=== PATIENT | male | born 1940 | race Caucasian/White ===

== ENCOUNTER → 2016-06-16 | Outpatient (CLI) | payer MEDICARE, BC ==
[~2016-06-16] MED LIST: ABILIFY 10MG TA10 MG PO; ABILIFY2 MG PO; ABILIFY5 MG PO; ALLEGRA 180MG180 MG PO; ALLEGRA ODT30 MG PO; ALLOPURINOL300 MG PO; AMBIEN 10MG10 MG PO; ANDROGEL1% TP; AZILECT1 M1 PO; BUSPAR DIVIDOSE15 MG PO; BUSPAR10 MG PO; BUSPAR5 MG PO; CENTRUM SILVER1 CTB PO; COLACE 100100 MG/CAP PO; COUMADIN 5MG5 MG/TAB PO; FERROUS SU325 MG/TAB PO; FERROUS SULFATE65 MG PO; FIBER TABLETS1 TAB PO; FLECAINIDE PO; FLOMAX 0.40.4 MG/CAP PO; HCTZ 25MG TAB25 MG PO; LEVAQUIN 750MG750 M1 PO; LUNESTA1 MG PO; MELATONIN5 M1 PO; MELATONIN5 M1 SL; METAMUCIL3.4 GM/DOS PO; MIRAPEX 0.0.125 MG/T PO; MIRAPEX ER3 MG PO; MIRAPEX ER4.5 MG PO; MULTI VITAMINS1 TAB PO; MULTIPLE VITAMI1 CAP PO; MULTIPLE VITAMI1 TAB PO; MVI; NEURONTIN100 MG/CAP PO; NIACIN PO; NORCO 325 MG-51 TAB PO; PERCOCET 325 MG1 TA2 PO; PROSCAR 5MG5 MG PO; PROSCAR PO; PROZAC 20MG20 MG PO; PYRIDIUM 100MG100 MG PO; STOOL SOFTENER100 M2 PO; TOPROL; TOPROL XL 25MG25 MG PO; UROCIT-K 5540 MG/TAB PO; VIAGRA; VIAGRA100 M1 PO; VITAMIN FLUSH-F1 CAP PO; ZITHROMAX 250M250 MG PO; ZOLOFT 100MG100 MG PO; ZOLOFT 50MG50 MG PO; ZYLOPRIM 300MG300 MG PO; [UNRECOGNIZED DRUG - OTHER]
== END ==
LOC: MHCPAIN 10:03
DX: G89.29 Other chronic pain (principal); M50.90 Cervical disc disorder, unspecified, unspecified cervical region; M54.12 Radiculopathy, cervical region
CPT/HCPCS: G0463

== ENCOUNTER → 2016-06-26 | Outpatient (CLI) | payer MEDICARE, BC | LOC: MHCPAIN 09:45 | DX: M47.812 Spondylosis without myelopathy or radiculopathy, cervical region (principal) ==

== ENCOUNTER → 2016-07-04 | Outpatient (CLI) | payer MEDICARE, BC | LOC: MHCPAIN 09:03 | DX: G89.29 Other chronic pain (principal); M50.90 Cervical disc disorder, unspecified, unspecified cervical region; M54.12 Radiculopathy, cervical region | CPT/HCPCS: G0463 ==

== ENCOUNTER 2016-08-06 09:00 | Outpatient (RCR) | payer MEDICARE, BC ==
[~2016-08-06 09:00] MED LIST changes: -METAMUCIL3.4 GM/DOS PO; -PERCOCET 325 MG1 TA2 PO; -PROSCAR 5MG5 MG PO; -UROCIT-K 5540 MG/TAB PO; -VITAMIN FLUSH-F1 CAP PO
[2016-11-17] MEDS ORDERED: FLOMAX 0.40.4 MG/CAP PO (17:00)
[2016-11-17] MEDS ORDERED: PROSCAR 5MG5 MG PO (17:00)
[2016-11-17] MEDS ORDERED: VITAMIN FLUSH-F1 CAP PO (17:05)
[2016-11-19] MEDS ORDERED: PERCOCET 325 MG1 TA2 PO (16:50)
== END 2016-08-12 14:13 | disposition still patient (30) ==
LOC: MKS.ESL.PT 09:00
DX: M47.892 Other spondylosis, cervical region (principal)
CPT/HCPCS: G8978-GP; G8979-GP; G8980-GP

== ENCOUNTER → 2016-10-10 | Outpatient (CLI) | payer MEDICARE, BC ==
[~2016-10-10] MED LIST changes: +METAMUCIL3.4 GM/DOS PO; +PERCOCET 325 MG1 TA2 PO; +PROSCAR 5MG5 MG PO; +UROCIT-K 5540 MG/TAB PO; +VITAMIN FLUSH-F1 CAP PO
== END ==
LOC: MHCPAIN 10:04
DX: G89.29 Other chronic pain (principal); M50.90 Cervical disc disorder, unspecified, unspecified cervical region
CPT/HCPCS: G0463

== ENCOUNTER → 2016-10-15 | Outpatient (CLI) | payer MEDICARE, BC | LOC: COL.RAD 06:59 | DX: Z01.812 Encounter for preprocedural laboratory examination (principal); I67.82 Cerebral ischemia; G31.9 Degenerative disease of nervous system, unspecified; K14.8 Other diseases of tongue; R13.10 Dysphagia, unspecified; Z86.73 Personal history of transient ischemic attack (TIA), and cerebral infarction without residual deficits | CPT/HCPCS: A9585 ==

== ENCOUNTER 2016-10-16 06:47 | Observation (INO) | payer MEDICARE, BC ==
[2016-10-16] VITALS (12 sets, daily range): BP systolic 107–154; BP diastolic 53–92; PULSE 59–76; TEMP 98.1–99
[~2016-10-16] VITALS: Ht 193 cm; Wt 115.9 kg
[~2016-10-16 06:47] MED LIST changes: -METAMUCIL3.4 GM/DOS PO; -PERCOCET 325 MG1 TA2 PO; -PROSCAR 5MG5 MG PO; -UROCIT-K 5540 MG/TAB PO; -VITAMIN FLUSH-F1 CAP PO
[2016-10-16 08:07] LABS: MEAN CELL VOLUME 93 fl (80.0-100.0); MEAN CORPUSCULAR HGB CONC 33 g/dl (33.0-37.0); MEAN PLATELET VOLUME 11.5 fl (7.4-10.4); PLATELET COUNT 54 K/mm3 (130-400); RED BLOOD COUNT 3.75 M/mm3 (4.20-5.60); REDCELL DISTRIBUTION WIDTH-CV 16.6 % (11.5-14.5); WHITE BLOOD COUNT 4.8 K/mm3 (4.8-10.8)
[2016-10-16 08:09] LABS: HEMOGLOBIN 11.6 g/dl (13.5-18.0); MEAN CORPUSCULAR HEMOGLOBIN 31 pg (27.0-31.0)
[2016-10-16 08:24] LABS: CALCIUM 9.5 mg/dL (8.4-10.2); CREATININE, serum 0.76 mg/dL (0.66-1.25)
[2016-10-16] MEDS ORDERED: UROCIT-K 5540 MG/TAB PO (09:26)
[2016-10-16] MEDS ORDERED: METAMUCIL3.4 GM/DOS PO (09:27)
[2016-10-17 01:02] VITALS: BP 114/40; PULSE 61; TEMP 98.3
[2016-10-17 05:28] VITALS: BP 118/54; PULSE 63; TEMP 97.5
[2016-10-17 09:15] VITALS: BP 130/60; PULSE 66; TEMP 97.8
[2016-10-17 13:46] VITALS: BP 132/60; PULSE 69; TEMP 98.6
[2016-11-17] MEDS ORDERED: FLOMAX 0.40.4 MG/CAP PO (17:00)
[2016-11-17] MEDS ORDERED: PROSCAR 5MG5 MG PO (17:00)
[2016-11-17] MEDS ORDERED: VITAMIN FLUSH-F1 CAP PO (17:05)
[2016-11-19] MEDS ORDERED: PERCOCET 325 MG1 TA2 PO (16:50)
== END 2016-10-17 14:20 | disposition home or self-care (01) ==
LOC: SURG 06:47
PROVIDERS: Urology
DX: N32.89 Other specified disorders of bladder (principal); R31.0 Gross hematuria; I48.91 Unspecified atrial fibrillation; I10 Essential (primary) hypertension; E29.1 Testicular hypofunction; D69.6 Thrombocytopenia, unspecified; D46.9 Myelodysplastic syndrome, unspecified; F84.5 Asperger's syndrome; G47.33 Obstructive sleep apnea (adult) (pediatric); M19.90 Unspecified osteoarthritis, unspecified site; J18.9 Pneumonia, unspecified organism; D64.9 Anemia, unspecified; G20 Parkinson's disease; Z90.79 Acquired absence of other genital organ(s); Z90.49 Acquired absence of other specified parts of digestive tract; Z85.72 Personal history of non-Hodgkin lymphomas; Z85.038 Personal history of other malignant neoplasm of large intestine; Z80.1 Family history of malignant neoplasm of trachea, bronchus and lung
CPT/HCPCS: G0378; J0690; J1100; J1885; J2405; J2704; J3010; J7030; J7120

== ENCOUNTER 2017-02-23 10:00 | Outpatient (RCR) | payer MEDICARE, BC ==
[~2017-02-23 10:00] MED LIST changes: +METAMUCIL3.4 GM/DOS PO; +PERCOCET 325 MG1 TA2 PO; +PROSCAR 5MG5 MG PO; +UROCIT-K 5540 MG/TAB PO; +VITAMIN FLUSH-F1 CAP PO
== END 2017-03-26 ==
LOC: MKS.ESL.PT
DX: M25.511 Pain in right shoulder (principal)
CPT/HCPCS: G8990-GP; G8991-GP

== ENCOUNTER → 2017-09-10 | Outpatient (CLI) | payer MEDICARE, BC | LOC: COL.RAD 13:15 | DX: R59.0 Localized enlarged lymph nodes (principal); J98.4 Other disorders of lung; Z85.79 Personal history of other malignant neoplasms of lymphoid, hematopoietic and related tissues; Z87.311 Personal history of (healed) other pathological fracture | CPT/HCPCS: Q9967 ==

== ENCOUNTER 2017-09-23 22:39 | Emergency (ER) | payer MEDICARE, BC ==
[2017-09-23 22:49] VITALS: BP 141/78
[2017-09-23] MEDS ORDERED: AMOXICILLIN 50500 MG PO (23:14)
[2017-09-23] MEDS ORDERED: TYLENOL W/COD1 UDTAB PO (23:14)
[2017-09-23 23:17] VITALS: TEMP 98.7
[2017-09-24 00:20] VITALS: PULSE 98
== END 2017-09-24 00:20 | disposition home or self-care (01) ==
LOC: COL.ER 22:39
DX: K02.9 Dental caries, unspecified (principal); G20 Parkinson's disease; Z79.891 Long term (current) use of opiate analgesic

== ENCOUNTER 2018-02-24 10:15 | Outpatient (RCR) | payer MEDICARE, BC ==
[~2018-02-24 10:15] MED LIST changes: +AMOXICILLIN 50500 MG PO; +TYLENOL W/COD1 UDTAB PO
[2018-02-28] MEDS ORDERED: SINEMET 25/101 UDTAB PO ×2 (01:00→01:04)
[2018-02-28] MEDS ORDERED: RITALIN 5MG5 MG/TAB PO (01:05)
== END 2018-03-09 | disposition home or self-care (01) ==
LOC: MKS.ESL.PT
DX: G20 Parkinson's disease (principal); Z79.899 Other long term (current) drug therapy
CPT/HCPCS: G8978-GP; G8979-GP

== ENCOUNTER 2018-02-27 21:41 | Inpatient (IN) | payer MEDICARE, BC ==
[~2018-02-27] VITALS: Ht 193 cm; Wt 115.0 kg
[2018-02-27 22:12] LABS: MEAN CELL VOLUME 87 fl (80.0-100.0); MEAN CORPUSCULAR HEMOGLOBIN 28 pg (27.0-31.0); MEAN CORPUSCULAR HGB CONC 31 g/dl (33.0-37.0); RED BLOOD COUNT 3.64 M/mm3 (4.20-5.60); REDCELL DISTRIBUTION WIDTH-CV 22.5 % (11.5-14.5)
[2018-02-27 22:13] LABS: HEMATOCRIT 31.8 % (42.0-52.0)
[2018-02-27 22:14] LABS: PLATELET COUNT 34 K/mm3 (130-400)
[2018-02-27 22:23] LABS: ALBUMIN 4.2 gm/dL (3.5-5.0); C-REACTIVE PROTEIN 5.2 mg/dL (0.0-0.9); CALCIUM 9.7 mg/dL (8.4-10.2); CREATININE, serum 1.01 mg/dL (0.66-1.25); POTASSIUM 4.1 mmol/L (3.4-5.0); TOTAL PROTEIN 7.8 gm/dL (6.4-8.2)
[2018-02-27 22:27] LABS: BAND 15 % (0-10); NEUTROPHILS 58 % (42.0-75.2); PLATELET ESTIMATE DECREASED (NORMAL)
[2018-02-27 22:28] LABS: ANISOCYTOSIS 2+; OVALOCYTES 1+; POIKILOCYTOSIS 1+
[2018-02-27 22:29] LABS: LYMPHOCYTE 11 % (20.0-51.0)
[2018-02-27 22:32] LABS: TROPONIN-I 0.023 ng/mL (0.000-0.034)
[2018-02-28] VITALS (8 sets, daily range): BP systolic 103–153; BP diastolic 49–54; PULSE 71–101; TEMP 97.6–101.5
[2018-02-28] MEDS ORDERED: SINEMET 25/101 UDTAB PO ×2 (01:00→01:04)
[2018-02-28] MEDS ORDERED: RITALIN 5MG5 MG/TAB PO (01:05)
--- NOTE | 2018-02-28 07:05 | NUR ---
Pt resting. States he feels better this morning. Report given to Angie SMALL.
[2018-02-28 08:15] LABS: MEAN CELL VOLUME 88 fl (80.0-100.0); MEAN CORPUSCULAR HGB CONC 31 g/dl (33.0-37.0); RED BLOOD COUNT 3.09 M/mm3 (4.20-5.60); REDCELL DISTRIBUTION WIDTH-CV 22.6 % (11.5-14.5)
[2018-02-28 08:16] LABS: HEMATOCRIT 27.2 % (42.0-52.0); HEMOGLOBIN 8.5 g/dl (13.5-18.0); MEAN CORPUSCULAR HEMOGLOBIN 28 pg (27.0-31.0)
[2018-02-28 08:17] LABS: PLATELET COUNT 30 K/mm3 (130-400)
[2018-02-28 08:18] LABS: CALCIUM 8.9 mg/dL (8.4-10.2); CREATININE, serum 0.91 mg/dL (0.66-1.25); MAGNESIUM 1.7 mg/dL (1.6-2.3); POTASSIUM 3.9 mmol/L (3.4-5.0)
--- NOTE | 2018-02-28 09:24 | NUR ---
Pt assessment complete. Pt is sleeping in bed upon entry, he arouses to voice. Pt denies any pain. Breathing is wheezy on 2L O2 via NC, occasional wet cough present. SCD's on to bilateral legs. Pt denies needs, assisted with ordering breakfast. Call light within reach. Will continue to monitor.
[2018-02-28 11:05] LABS: BAND 15 % (0-10); LYMPHOCYTE 21 % (20.0-51.0); NEUTROPHILS 50 % (42.0-75.2); PLATELET ESTIMATE DECREASED (NORMAL)
[2018-02-28 11:06] LABS: ANISOCYTOSIS 1+; HYPOCHROMIA 1+; OVALOCYTES 1+
--- NOTE | 2018-02-28 11:28 | NUR ---
Patient lives at home with his in [place], [place] and plans to return home upon discharge. Patient is mostly independent with daily living activities although he does have Parkinson's Disease and uses a cane for mobility as needed along with a CPAP machine at night. Patient's primary care physician is Dr. René Abebe and his oncologist is Dr. Serna as he is currently undergoing chemotherapy. Patient's pharmacy is [facility] and he does have advanced directives completed. Patient's and family as very supportive and patient is waiting for doctor's recommendation on discharge timeline. No further needs at this time.
[2018-02-28 16:39] LABS: COLLECTION METHOD CATHETER
[2018-02-28 16:50] LABS: MUCOUS Present /lpf; PH 5 (5-8); SQUAMOUS EPITHELIAL 0-2 /hpf; URINE APPEARANCE Clear; URINE BACTERIA None Seen /hpf; URINE BILIRUBIN Negative (NEGATIVE); URINE BLOOD 1+ (NEGATIVE); URINE COLOR Amber; URINE GLUCOSE Negative (NEGATIVE); URINE KETONE Negative (NEGATIVE); URINE LEUKOCYTE ESTERASE Negative (NEGATIVE); URINE NITRATE Negative (NEGATIVE); URINE PROTEIN(semi-quant) Negative (NEGATIVE); URINE RBC 0-2 /hpf; URINE UROBILINOGEN Negative (NEGATIVE)
--- NOTE | 2018-02-28 19:28 | NUR ---
Pt had uneventful afternoon. Resting in bed with call light within reach, at bedside. Denies further needs at this time. Report given to STACI Disla.
[2018-03-01] VITALS (8 sets, daily range): BP systolic 125–157; BP diastolic 55–75; PULSE 86–128; TEMP 98.1–101
--- NOTE | 2018-03-01 06:23 | NUR ---
Pt slept some during the night, no C/O pain, VS have been stable.
--- NOTE | 2018-03-01 07:19 | NUR ---
awake resting in bed, bedside shift report received from STACI Disla
--- NOTE | 2018-03-01 08:00 | NUR ---
awake resting in bed, full assessment completed, see interventions for further info, has audible wheezing with resp, lung sounds are coarse throughout lung mathews, denies needs
--- NOTE | 2018-03-01 09:20 | NUR ---
resting in bed, at bedside now, denies needs
[2018-03-01 09:23] LABS: MEAN CELL VOLUME 88 fl (80.0-100.0); MEAN CORPUSCULAR HGB CONC 31 g/dl (33.0-37.0); RED BLOOD COUNT 2.92 M/mm3 (4.20-5.60); REDCELL DISTRIBUTION WIDTH-CV 22.5 % (11.5-14.5)
[2018-03-01 09:37] LABS: CALCIUM 8.8 mg/dL (8.4-10.2); CREATININE, serum 0.63 mg/dL (0.66-1.25); POTASSIUM 3.9 mmol/L (3.4-5.0)
[2018-03-01 09:39] LABS: HEMATOCRIT 25.7 % (42.0-52.0); MEAN CORPUSCULAR HEMOGLOBIN 27 pg (27.0-31.0)
[2018-03-01 09:41] LABS: PLATELET COUNT 21 K/mm3 (130-400)
--- NOTE | 2018-03-01 09:45 | NUR ---
asking if he had a breathing treatment this am, informed dimitris he had, she is concerned he is not as "perky" this am as he had been yesterday afternoon, asking if he should be on a mask instead of a nasal cannula, O2 sat check and O2 is 96% on 3L/NC, informed would be around and will talk with her
--- NOTE | 2018-03-01 10:23 | NUR ---
Called and left message with Dr Trivedi for infectious disease consult
--- NOTE | 2018-03-01 10:43 | NUR ---
resting in bed, gave him his applesauce and chocolate chip cookie as he requested
[2018-03-01 11:11] LABS: BAND 8 % (0-10); LYMPHOCYTE 11 % (20.0-51.0); METAMYELOCYTE 1 % (0-0); NEUTROPHILS 66 % (42.0-75.2); PLATELET ESTIMATE DECREASED (NORMAL)
[2018-03-01 11:12] LABS: ANISOCYTOSIS 3+; MICROCYTOSIS 2+
[2018-03-01 11:13] LABS: STOMATOCYTE 1+
[2018-03-01 11:14] LABS: OVALOCYTES 1+
--- NOTE | 2018-03-01 11:55 | NUR ---
to radiology per WC for CT scan
--- NOTE | 2018-03-01 12:22 | NUR ---
returned to room per WC from CT scan, sitting up in bed to have some pudding and ensure, remains at bedside
--- NOTE | 2018-03-01 13:01 | NUR ---
appears to be sleeping, in bed with eyes closed, at bedside
--- NOTE | 2018-03-01 14:36 | NUR ---
resting in bed, MRSA screen collected and infomred patietn of need for urine specimen, verbalizes understanding
--- NOTE | 2018-03-01 16:30 | NUR ---
resting in bed, denies needs
--- NOTE | 2018-03-01 18:00 | NUR ---
up in recliner visiting with
--- NOTE | 2018-03-01 18:55 | NUR ---
bedside shift report given to STACI Mckeon
--- NOTE | 2018-03-01 21:15 | NUR ---
PT IS VERY SOB, CALLED RT AND RT ADVISED ALREADY HAD BREATHING TX. INCREASED O2 TO 4L/NC AND O2 SATS AT 95%, RAISED THE HOB TO 90 DEGREE ANGLE. PT ADVISED THAT HE FEELS BETTER AND HE DOES NOT HAVE THE PANICY FEELING. PT ALSO HAS A TEMP OF 101.0, GAVE TYLENOL FOR TEMP. ALSO CALLED NIKA TANNER AND ADVISED OF PT'S CONDITION. NIKA TANNER ADVISED SHE WILL BE IN TO SEE HIM. CALL LIGHT WITHIN REACH. ADVISED THAT PT GOT UP TO USE THE RESTROOM AND THAT IS WHEN HE BECAME SOB FROM THE ACTIVITY. CALL LIGHT WITHIN REACH.
[2018-03-02] VITALS (363 sets, daily range): BP systolic 138–154; BP diastolic 60–82; PULSE 89–136; TEMP 97.5–99.1; O2SAT 91–100
--- NOTE | 2018-03-02 05:09 | NUR ---
PT HAD CPAP PUT ON AND WAS SLEEPING FOR A FEW HOURS. PT HAD KLENEX WITH BLOOD ON THEM. PT HAS BEEN BLOWING HIS NOSE TOO HARD. WITNESSED PT BLOWING NOSE AND SUGGESTED TO NOT BLOW SO HARD AND TO HOLD ONE NOSTRIL AND BLOW ONE AT A TIME, BUT PT DID NOT DO IT INSTRUCTED AND WHEN HE BLEW HIS NOSE HAD BLOOD ON THE KLENEX. PT'S NOSE STOPPED UP AND COULD NOT BREATH WITH CPAP. CALLED RT TO SEE ABOUT A BIPAP, BUT RT PUT ON AN OXYMASK. PT'S O2 SATS AT 98%. PT NOW IN BED RESTING/SLEEPING WITH BOTH EYES CLOSED. PT STILL HAS EXP WHEEZING AND NOSE STILL SOUNDS STOPPED UP. PT BREATHING THROUGH MOUTH, MOUTH IS OPENED. CALL LIGHT WITHIN REACH.
[2018-03-02 05:45] LABS: ARTERIAL BLOOD GAS pH 7.47 (7.35-7.45)
[2018-03-02 05:46] LABS: ARTERIAL BLD GAS O2 SATURATION 95.8 % (92-100); ARTERIAL BLOOD GAS BASE EXCESS 3.9 (-2-2); ARTERIAL BLOOD GAS HCO3 27.7 meq/L (22-26); ARTERIAL BLOOD GAS PO2 81.1 mmHg (80-100)
[2018-03-02 07:13] LABS: MEAN CELL VOLUME 89 fl (80.0-100.0); MEAN CORPUSCULAR HGB CONC 31 g/dl (33.0-37.0); RED BLOOD COUNT 2.86 M/mm3 (4.20-5.60); REDCELL DISTRIBUTION WIDTH-CV 22.5 % (11.5-14.5)
[2018-03-02 07:21] LABS: CALCIUM 9.4 mg/dL (8.4-10.2); CREATININE, serum 0.67 mg/dL (0.66-1.25); POTASSIUM 3.7 mmol/L (3.4-5.0)
[2018-03-02 07:33] LABS: HEMATOCRIT 25.3 % (42.0-52.0); HEMOGLOBIN 7.8 g/dl (13.5-18.0); MEAN CORPUSCULAR HEMOGLOBIN 27 pg (27.0-31.0)
[2018-03-02 07:34] LABS: PLATELET COUNT 15 K/mm3 (130-400)
[2018-03-02 07:39] LABS: ANISOCYTOSIS 3+; BAND 5 % (0-10); HYPOCHROMIA 3+; LYMPHOCYTE 6 % (20.0-51.0); METAMYELOCYTE 1 % (0-0); NEUTROPHILS 79 % (42.0-75.2); PLATELET ESTIMATE DECREASED (NORMAL)
--- NOTE | 2018-03-02 15:25 | NUR ---
Report received from Darryn Keyes on medical floor and pt brought down by wheelchair to ICU 8. Pt ambulated to bed and placed on monitor. Currently on 4L. Denies any pain or concerns. Dr Underwood notified of consult. No new orders received. at bedside. Will continue to follow.
--- NOTE | 2018-03-02 16:45 | NUR ---
Report received from STACI Raphael. Care of patient assumed at this time.
--- NOTE | 2018-03-02 16:45 | NUR ---
Report given to Ursula Keyes and care transfered.
--- NOTE | 2018-03-02 17:00 | NUR ---
Patient resting in bed. Denies any pain or shortness of breath at this time. No concerns. Will continue to monitor.
--- NOTE | 2018-03-02 18:49 | NUR ---
Patient up in chair eating dinner. No complaints at this time. Will continue to monitor.
--- NOTE | 2018-03-02 19:20 | NUR ---
Dr. Todd at bedside to see patient. No new orders given at this time.
--- NOTE | 2018-03-02 19:24 | NUR ---
Report given to STACI Mendes.
--- NOTE | 2018-03-02 19:30 | NUR ---
Report received from STACI Vergara. Patient care received.
--- NOTE | 2018-03-02 20:30 | NUR ---
Assessment complete; at bed side; all questions and concerns answered. patient refused offer to wear hospital non-skid socks. Requested patient use call light prior to standing up or getting out of bed. Patient verbalized agreement.
[2018-03-03] VITALS (968 sets, daily range): BP systolic 145–159; BP diastolic 72–85; PULSE 79–96; TEMP 97.6–98.6; O2SAT 80–100
--- NOTE | 2018-03-03 03:00 | NUR ---
Patient continues to wear BIPAP and has tolerated it well. No complaints or concerns at this time.
--- NOTE | 2018-03-03 05:10 | NUR ---
Assisted up from bed to use urinal. Replaced BIPAP when finished; no issues at this time.
--- NOTE | 2018-03-03 07:30 | NUR ---
Bedside report recieved from Cinthya SMALL. Patient awake and alert in bed, participates in report. Requets BiPap off at this time, oxygen applied at 4L NC. Denies needs at this time
--- NOTE | 2018-03-03 07:30 | NUR ---
Bedside report given to STACI Montgomery. Patient care transfered.
[2018-03-03 08:18] LABS: MEAN CELL VOLUME 89 fl (80.0-100.0); MEAN CORPUSCULAR HGB CONC 31 g/dl (33.0-37.0); RED BLOOD COUNT 3.14 M/mm3 (4.20-5.60); REDCELL DISTRIBUTION WIDTH-CV 22.2 % (11.5-14.5)
[2018-03-03 08:20] LABS: HEMOGLOBIN 8.7 g/dl (13.5-18.0); MEAN CORPUSCULAR HEMOGLOBIN 28 pg (27.0-31.0)
[2018-03-03 08:22] LABS: PLATELET COUNT 10 K/mm3 (130-400)
[2018-03-03 08:33] LABS: CREATININE, serum 0.61 mg/dL (0.66-1.25)
[2018-03-03 08:49] LABS: BAND 17 % (0-10); LYMPHOCYTE 8 % (20.0-51.0); NEUTROPHILS 75 % (42.0-75.2); PLATELET ESTIMATE DECREASED (NORMAL)
[2018-03-03 08:51] LABS: OVALOCYTES 1+
--- NOTE | 2018-03-03 10:00 | NUR ---
Patient refuses to wear hospital non skid socks, has own socks on at this time. Risks discussed with patient earlier this morning, and patient states refusal to wear.
--- NOTE | 2018-03-03 10:37 | NUR ---
This RN spoke with patient's after speaking with Dr. Stokes. They feel it would be best to transfer to given the patient's extensive history and disease process here. Left message for Dr. Dewitt to call this RN for transfer.
--- NOTE | 2018-03-03 11:57 | NUR ---
pt having shortness of breath and upper airway wheezing. pt put on bipap.
--- NOTE | 2018-03-03 16:29 | NUR ---
Patient's states "I think he needs to go back on that breathing machine, he's just working so hard to breathe." Patient had just stood at bedside to void and reposition self in bed. RN helped patient to get settled, does have BREWER but better when at rest. States ok to wearing BiPap for a short time, this RN will return at 1800 to remove and give break. This RN also spoke with about transfer to . Doctors at would like to wait until tomorrow morning since this is a non-emergent transfer. and patient state understanding.
--- NOTE | 2018-03-03 19:20 | NUR ---
report given to Cinthya SMALL
--- NOTE | 2018-03-03 21:15 | NUR ---
Assisted up to void. Reminded patient to utilize call light prior to standing up. Refused offer to wear hospital socks with lining setter and refused SCD's. No other concerns at this time.
[2018-03-04] VITALS (548 sets, daily range): BP systolic 120–145; BP diastolic 63–78; PULSE 66–100; TEMP 97.7–98.5; O2SAT 68–100
--- NOTE | 2018-03-04 02:15 | NUR ---
In patients room to address beeping pump. Patient sleeps between disturbances. No concerns at this time.
--- NOTE | 2018-03-04 04:45 | NUR ---
Entered patient room due to BIPAP alarm sounding. Observed patient looking panicked and pulling at mask. Patient stated "get this thing off!". Removed mask and replace NC at 2L. Patient appeared to calm down after removing mask. 02 saturation stable.
[2018-03-04 05:45] LABS: HEMATOCRIT 25.4 % (42.0-52.0); HEMOGLOBIN 7.8 g/dl (13.5-18.0); MEAN CELL VOLUME 90 fl (80.0-100.0); MEAN CORPUSCULAR HEMOGLOBIN 28 pg (27.0-31.0); MEAN CORPUSCULAR HGB CONC 31 g/dl (33.0-37.0); PLATELET COUNT 19 K/mm3 (130-400); RED BLOOD COUNT 2.83 M/mm3 (4.20-5.60); REDCELL DISTRIBUTION WIDTH-CV 22.1 % (11.5-14.5)
[2018-03-04 05:55] LABS: CALCIUM 9.7 mg/dL (8.4-10.2); CREATININE, serum 0.66 mg/dL (0.66-1.25)
[2018-03-04 07:17] LABS: ANISOCYTOSIS 3+; BAND 18 % (0-10); LYMPHOCYTE 7 % (20.0-51.0); NEUTROPHILS 71 % (42.0-75.2); PLATELET ESTIMATE DECREASED (NORMAL)
[2018-03-04 07:18] LABS: MICROCYTOSIS 2+; OVALOCYTES 1+
[2018-03-04 07:19] LABS: TEAR DROP CELLS 1+
--- NOTE | 2018-03-04 07:20 | NUR ---
Report given to STACI Montgomery. Patient care transfered.
--- NOTE | 2018-03-04 07:20 | NUR ---
Report recieved from Cinthya SMALL. Patient sleeps in bed at this time. Call light at side. This RN assumes care of patient.
--- NOTE | 2018-03-04 10:15 | NUR ---
Spoke with and patient about transferring to [facility]. Both decline need for transfer at this time, "We'll just stay here and see how things go." Dr. Dewitt notified as well as [facility] with [facility] of patient's decision.
--- NOTE | 2018-03-04 12:48 | NUR ---
Patient requests to rest at this time. In recliner, BP and SpO2 monitors off at this time to allow patient to sleep. Son at side in room. Both denies any needs at this time.
--- NOTE | 2018-03-04 17:15 | NUR ---
Patient transfers to bed with help of . O2 off at this time, SpO2 95-97%, will continue to monitor for need. Patience RT notified, ok with plan.
--- NOTE | 2018-03-04 19:02 | NUR ---
Bedside report given to Evaristo SMALL. Patient and at bedside and participate in report
--- NOTE | 2018-03-04 20:00 | NUR ---
Patient assessment completed and charted, please see documentation for details. Patient resting in bed, at bedside. Patient and family have no questions for nurse at this time. Will continue to monitor and assess.
[2018-03-05] VITALS (475 sets, daily range): BP systolic 152–159; BP diastolic 78–91; PULSE 86–97; TEMP 97.5–98.2; O2SAT 36–100
--- NOTE | 2018-03-05 00:15 | NUR ---
Patient in bed, requesting melatonin at this time. Placed on home CPAP at this time, will continue to monitor.
[2018-03-05 05:37] LABS: BASO % 0.9 % (0.0-2.0); GRAN # 1.9 (1.4-6.5); GRAN % 82.9 % (42.2-75.2); LYMPH # 0.2 (1.2-3.4); LYMPH % 9.2 % (20.0-51.0); MEAN CELL VOLUME 90 fl (80.0-100.0); MEAN CORPUSCULAR HGB CONC 31 g/dl (33.0-37.0); MONO # 0.1 (0.1-0.6); MONO % 4.4 % (1.7-9.3); REDCELL DISTRIBUTION WIDTH-CV 22.5 % (11.5-14.5)
[2018-03-05 05:40] LABS: HEMATOCRIT 24.3 % (42.0-52.0); HEMOGLOBIN 7.4 g/dl (13.5-18.0); MEAN CORPUSCULAR HEMOGLOBIN 27 pg (27.0-31.0)
[2018-03-05 05:42] LABS: PLATELET COUNT 7 K/mm3 (130-400)
[2018-03-05 05:45] LABS: CALCIUM 9.9 mg/dL (8.4-10.2); CREATININE, serum 0.64 mg/dL (0.66-1.25); POTASSIUM 4.1 mmol/L (3.4-5.0)
[2018-03-05 06:21] LABS: BAND 8 % (0-10); HYPOCHROMIA 3+; LYMPHOCYTE 10 % (20.0-51.0); NEUTROPHILS 78 % (42.0-75.2); OVALOCYTES 3+; PLATELET ESTIMATE DECREASED (NORMAL)
--- NOTE | 2018-03-05 08:09 | NUR ---
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 Pete SHERIFF called, no answer, voicemail left with return phone number.
--- NOTE | 2018-03-05 11:06 | NUR ---
Bedside report given to EMS. Vital signs remain stable. Pt ambulated from chair to EMS stretcher.
--- NOTE | 2018-03-05 11:25 | NUR ---
Telephone report given to Elmo RN at [facility]. Ari rahman RN at [facility] notified that ETA: [id number]
== END 2018-03-05 11:00 | disposition short-term general hospital (02) | DRG 871 ==
LOC: COL.ER 21:41 → MEDICAL 22:48 → ICU 03-02 15:05
PROVIDERS: Emergency Medicine; Hospitalist; Internal Medicine; Nurse Practitioner; Physician Assistant; ADMIT Family Medicine
DX: A41.9 Sepsis, unspecified organism (principal); J12.1 Respiratory syncytial virus pneumonia; J96.01 Acute respiratory failure with hypoxia; D61.810 Antineoplastic chemotherapy induced pancytopenia; F84.5 Asperger's syndrome; C93.10 Chronic myelomonocytic leukemia not having achieved remission; G20 Parkinson's disease; I10 Essential (primary) hypertension; D46.9 Myelodysplastic syndrome, unspecified; R04.0 Epistaxis
CPT/HCPCS: OP; 99222-AI; 99232-AI; 99239; J0456; J0696; J1956; J2543; J2930; J3370; J7030; J7040; J7050; Q9967

== ENCOUNTER 2018-06-09 12:35 | Emergency (ER) | payer MEDICARE, BC ==
[~2018-06-09] VITALS: Ht 193 cm; Wt 104.5 kg
[~2018-06-09 12:35] MED LIST changes: +RITALIN 5MG5 MG/TAB PO; +SINEMET 25/101 UDTAB PO
[2018-06-09 15:32] LABS: MEAN CELL VOLUME 92 fl (80.0-100.0); MEAN CORPUSCULAR HEMOGLOBIN 28 pg (27.0-31.0); MEAN CORPUSCULAR HGB CONC 30 g/dl (33.0-37.0); REDCELL DISTRIBUTION WIDTH-CV 21.4 % (11.5-14.5)
[2018-06-09 15:44] LABS: HEMATOCRIT 33.2 % (42.0-52.0)
[2018-06-09 15:46] LABS: PLATELET COUNT 18 K/mm3 (130-400)
[2018-06-09] MEDS ORDERED: NORCO 325 MG-51 TAB PO (16:09)
[2018-06-09 16:28] LABS: BAND 13 % (0-10); LYMPHOCYTE 31 % (20.0-51.0); METAMYELOCYTE 1 % (0-0); MYELOCYTE 1 % (0-0); NEUTROPHILS 53 % (42.0-75.2)
[2018-06-09 16:29] LABS: ANISOCYTOSIS 3+; MICROCYTOSIS 1+; PLATELET ESTIMATE DECREASED (NORMAL)
[2018-06-09 17:10] VITALS: BP 120/77; PULSE 67; TEMP 97.7
[2018-06-10 08:02] LABS: PATHOLOGY DIFF REVIEW OK
== END 2018-06-09 17:25 | disposition home or self-care (01) ==
LOC: COL.ER 12:35
PROVIDERS: Physician Assistant
DX: S22.31XA Fracture of one rib, right side, initial encounter for closed fracture (principal); S63.91XA Sprain of unspecified part of right wrist and hand, initial encounter; S63.501A Unspecified sprain of right wrist, initial encounter; D69.6 Thrombocytopenia, unspecified; W01.0XXA Fall on same level from slipping, tripping and stumbling without subsequent striking against object, initial encounter; Y92.410 Unspecified street and highway as the place of occurrence of the external cause

== ENCOUNTER 2018-07-13 08:06 | Emergency (ER) | payer MEDICARE, BC ==
[~2018-07-13] VITALS: Ht 177.8 cm; Wt 77.3 kg
[2018-07-13 08:14] VITALS: TEMP 98.9
[2018-07-13 08:32] LABS: MEAN CELL VOLUME 94 fl (80.0-100.0); MEAN CORPUSCULAR HGB CONC 32 g/dl (33.0-37.0)
[2018-07-13 08:35] LABS: ALBUMIN 3.5 gm/dL (3.5-5.0); BILIRUBIN,TOTAL 0.9 mg/dL (0.0-1.0); CREATININE, serum 0.75 (0.66-1.25); INR 1.3 (0.8-3.0); POTASSIUM 3.6 mmol/L (3.4-5.0); PROTHROMBIN TIME 15.3 SECONDS (9.7-12.8); TOTAL PROTEIN 6.7 gm/dL (6.4-8.2)
[2018-07-13 08:54] LABS: MEAN CORPUSCULAR HEMOGLOBIN 29 pg (27.0-31.0)
[2018-07-13 08:56] LABS: HEMATOCRIT 17.8 % (42.0-52.0); HEMOGLOBIN 5.6 g/dl (13.5-18.0); PLATELET COUNT 9 K/mm3 (130-400)
[2018-07-13 09:07] LABS: BASOPHIL 2 % (0-2); LYMPHOCYTE 34 % (20.0-51.0); NEUTROPHILS 50 % (42.0-75.2); PLATELET ESTIMATE DECREASED (NORMAL)
[2018-07-13 09:08] LABS: ANISOCYTOSIS 2+; HYPOCHROMIA 1+; OVALOCYTES 2+
--- NOTE | 2018-07-13 10:16 | NUR ---
Initial visit; Patient's thanked Gang Supervisor for looking in on her, offering support and calling her Solids Control Technician.
--- NOTE | 2018-07-13 11:42 | NUR ---
NUZHAT was called by ED physician because patient's is wanting to pursue hsopice. NUZHAT met with patient's and she reports she would like patient to go to the [facility]. NUZHAT contacted Troy from [facility] and she reports that they are familiar with the patient and family and would accept patient. Troy reported that she will need to contact Dr Abebe to inquire if he would follow patient while patient is at the hospice house. NUZHAT offered to contact Dr Abebe's office. NUZHAT then contacted Dr Abebe's nurse, Martha, and she reports Dr Abebe would follow. NUZHAT reported this to Troy at [facility] and faxed orders and scripts. Sanitation Officer arranged EMS transport.
[2018-07-13 13:16] VITALS: BP 126/57; PULSE 123
== END 2018-07-13 11:30 ==
LOC: COL.ER 08:06
PROVIDERS: Emergency Medicine
DX: S06.309A Unspecified focal traumatic brain injury with loss of consciousness of unspecified duration, initial encounter (principal); I48.91 Unspecified atrial fibrillation; I10 Essential (primary) hypertension; C85.80 Other specified types of non-Hodgkin lymphoma, unspecified site; D69.6 Thrombocytopenia, unspecified; G20 Parkinson's disease; R40.2412 Glasgow coma scale score 13-15, at arrival to emergency department; W18.39XA Other fall on same level, initial encounter; W22.8XXA Striking against or struck by other objects, initial encounter; Y92.009 Unspecified place in unspecified non-institutional (private) residence as the place of occurrence of the external cause
CPT/HCPCS: J1953; J2060; J2270; J2405; J7030